=== PATIENT | female | born 1965 | race Caucasian/White ===

== ENCOUNTER 2019-08-09 18:46 | Emergency (ER) | payer SELFPAY ==
[~2019-08-09] VITALS: Ht 160 cm; Wt 72.2 kg
[2019-08-09 18:49] VITALS: BP 143/111
[2019-08-09] MEDS ORDERED: HYDROcodone/APAP 5/325 TABLET ONE (19:28)
[2019-08-09] MEDS ORDERED: HYDROcodone/APAP 5/325 TABLET PO ONE (19:30)
[2019-08-09] MEDS ORDERED: ONDANSETRON 0.8 MG/ML ORAL SOL PO SCH (19:56)
[2019-08-09] MEDS ORDERED: ONDANSETRON ODT 4 MG ONE (19:56)
--- NOTE | 2019-08-09 20:18 | NUR ---
meds per sep. xr sal. isabella. as
== END 2019-08-09 20:34 | disposition home or self-care (01) ==
LOC: ED 20:28
DX: G89.29 Other chronic pain (principal); M25.561 Pain in right knee; M25.562 Pain in left knee; F17.200 Nicotine dependence, unspecified, uncomplicated
CPT/HCPCS: 73564; 99283; Q0162